=== PATIENT | female | born 1955 | race Caucasian/White ===

== ENCOUNTER 2017-12-24 12:16 | Emergency (ER) | payer OTHER ==
--- NOTE | 2017-12-24 13:00 | ED Physician Documentation ---
History of Present Illness - Stated complaint Stated Complaint: R ANKLE INJ - Chief complaint Chief Complaint: Ext Problem - Additonal information Additional information: hx from pt 62 f healthy injured ankle a month ago then re-aggrevated it swelling and discomfort lateral and posterior Review of Systems Musculoskeletal: reports: Joint pain, Joint swelling PD PAST MEDICAL HISTORY - Past Medical History HEENT: Chronic hearing loss - Past Surgical History Past Surgical History: No - Present Medications Home Medications: Ambulatory Orders Medication Instructions Recorded Confirmed No Known Home Medications [No 12/24/17 12/24/17 Known Home Medications] - Allergies Allergies/Adverse Reactions: Allergies Allergy/AdvReac Type Severity Reaction Status Date / Time No Known Drug Allergies Allergy Verified 12/24/17 12:23 - Social History Does the pt smoke?: No Smoking Status: Never smoker PD ED PE NORMAL - Vitals Vital signs reviewed: Yes - Extremities Extremities: Other (R ankle with lateral swelling, minimal TTP, achilles intact , no laxity, no sig redness or warmth, no 5th MT pain, no prox tib fib pain, MSV intact, nl achilles fxn) Results - Vitals Vitals: Vital Signs - 24 hr 12/24/17 12/24/17 12:18 14:10 Temperature 36.4 C L 36.6 C Heart Rate 75 76 Respiratory 16 16 Rate Blood Pressure 166/91 H 151/89 H O2 Saturation 100 100 Oxygen O2 Source Room air - Rads (name of study) ankle Radiology: See rad report (no fx or dislocation) Departure - Departure Disposition: 01 Home, Self Care Clinical Impression: Ankle sprain Qualifiers: Encounter type: initial encounter Involved ligament of ankle: unspecified ligament Laterality: right Qualified Code(s): S93.401A - Sprain of unspecified ligament of right ankle, initial encounter Condition: Good Instructions: ED Sprain Ankle Comments: The xray is fine - no broken or displaced bones I suspect this is a soft tissue injury. Recommend ice and elevation and an ZBIGNIEW wrap to decrease the swelling Discharge Date/Time: 12/24/17 14:13
--- NOTE | 2017-12-24 13:25 | XRAY Report ---
EXAM: RIGHT ANKLE RADIOGRAPHY EXAM DATE: 12/24/2017 01:15 PM. CLINICAL HISTORY: Pain and swelling. COMPARISON: None. TECHNIQUE: 3 views. FINDINGS: Bones: No fracture or focal bony lesion. Joints: No evidence of dislocation. Soft Tissues: No unexpected soft tissue findings. IMPRESSION: No evidence of fracture or dislocation. [facility] Referring Provider Line: [phone] SITE ID: [id number]
[2017-12-24 14:11] VITALS: BP 151/89
== END 2017-12-24 14:13 | disposition home or self-care (01) ==
LOC: ED 12:16
DX: S93.401A Sprain of unspecified ligament of right ankle, initial encounter (principal); X58.XXXA Exposure to other specified factors, initial encounter; Y93.H2 Activity, gardening and landscaping
CPT/HCPCS: 99282; 99283

== ENCOUNTER 2020-04-19 08:00 | Outpatient (CLI) | payer MEDICARE, OTHER ==
--- NOTE | 2020-04-19 12:38 | XRAY Report ---
PROCEDURE: Ankle 3 View RT INDICATIONS: RIGHT ANKLE PAIN TECHNIQUE: 3 views of the ankle were acquired. COMPARISON: 12/24/2017 FINDINGS: Bones: No fractures or dislocations. Ankle mortise is normally aligned. No suspicious bony lesions . The talar dome demonstrates an unremarkable appearance. Soft tissues: Generalized soft tissue swelling is seen. IMPRESSION: Soft tissue swelling is seen. No findings of fracture are seen. However, if there is point tenderness (or other clinical concern fo r a fracture not seen on these plain films) then please consider a short-term follow-up plain film se archana or CT for further evaluation. Reviewed by: Daryl Rodriguez MD on 04/19/2020 11:36 AM MARCY Approved by: Daryl Rodriguez MD on 04/19/2020 11:36 AM MARCY Station ID: [id number]
== END 2020-04-19 23:59 | disposition home or self-care (01) ==
LOC: DI.S 08:00
PROVIDERS: ATTEND Physician Assistant Medical
DX: M79.89 Other specified soft tissue disorders (principal)